=== PATIENT | male | born 2000 | race African-American/Black ===

== ENCOUNTER 2024-05-04 17:14 | Emergency (ER) | payer SELFPAY ==
[~2024-05-04] VITALS: Ht 185.4 cm; Wt 70.0 kg
[2024-05-04 17:15] VITALS: O2SAT 100
[2024-05-04 18:41] LABS: BASOPHILS % 0.4 % (0.0-2.0); HEMATOCRIT. 44.9 % (42.0-52.0); HEMOGLOBIN. 14.7 g/dL (14.0-18.0); LYMPHOCYTES % 11.2 % (20.0-50.0); MEAN CORPUSCULAR HEMOGLOBIN 30.5 pg (28.0-32.0); MEAN CORPUSCULAR HGB CONC 32.6 g/dL (31.0-37.0); MEAN CORPUSCULAR VOLUME 93.4 fL (80.0-94.0); MEAN PLATELET VOLUME 8.4 fl (7.4-10.4); MONOCYTES % 4.5 % (2.0-8.0); NEUTROPHILS % 83.9 % (40.0-76.0); PLATELET 191 x1000/uL (130-400); RED BLOOD CELL COUNT 4.81 mill/uL (4.7-6.1); RED CELL DISTRIBUTION WIDTH 14.3 % (11.6-14.6)
[2024-05-04] MEDS: SODIUM CHLORIDE 0.9% 1,000 ML IV ONE (18:47)
[2024-05-04] MEDS: KETOROLAC 30MG/ML VIAL IV STA (18:47)
[2024-05-04] MEDS: ONDANSETRON HCL 4MG/2ML INJ IV STA (18:47)
[2024-05-04 18:58] LABS: INR 1.1; PROTHROMBIN TIME 11.6 sec (9.6-11.0)
[2024-05-04 19:01] LABS: CHLORIDE 106 mEq/L (98-107); POTASSIUM 3.6 mEq/L (3.5-5.1); SODIUM 141 mEq/L (136-145)
[2024-05-04 19:02] LABS: CARBON DIOXIDE 24 mEq/L (21-32)
[2024-05-04 19:03] LABS: CALCIUM 9.6 mg/dL (8.7-10.4)
[2024-05-04 19:08] LABS: GLUCOSE 124 mg/dL (70-105); UREA NITROGEN BLOOD 13 mg/dL (9-23)
[2024-05-04 19:09] LABS: ALANINE AMINOTRANSFERASE 17 IU/L (10-49); ALBUMIN 4.5 g/dL (3.2-4.8); ASPARTATE AMINOTRANSFERASE 34 IU/L (<34)
[2024-05-04 19:10] LABS: BILIRUBIN DIRECT 0.3 mg/dL (<=3.0); BILIRUBIN TOTAL 0.9 mg/dL (0.1-1.0); PROTEIN TOTAL 7.6 g/dL (6.0-8.3)
[2024-05-04 22:58] LABS: CLARITY URINE CLOUDY (CLEAR); COLOR URINE DARK YELLOW (YELLOW); GLUCOSE URINE NEGATIVE (NEGATIVE); KETONES URINE 4+ (NEGATIVE); LEUKOCYTE ESTERASE URINE NEGATIVE (NEGATIVE); NITRITE URINE NEGATIVE (NEGATIVE); OCCULT BLOOD URINE TRACE (NEGATIVE); PROTEIN URINE 1+ (NEGATIVE); SPECIFIC GRAVITY URINE 1.034 (1.005-1.030)
[2024-05-04] MEDS ORDERED: NAPR-681 MT (23:14)
[2024-05-04] MEDS ORDERED: ONDA-239 PO (23:14)
[2024-05-04 23:17] LABS: BACTERIA URINE 2+; RBC URINE 0-2 /hpf (0-2); SQUAMOUS EPITHELIAL CELL URINE FEW /lpf (RARE/1+); WBC URINE 0-2 /hpf (0-2)
[2024-05-04 23:18] LABS: MUCUS URINE 1+ /lpf (NONE/TRACE)
[2024-05-04 23:30] VITALS: BP 125/71; PULSE 68; RESP 20; TEMP 37; O2SAT 100
== END 2024-05-04 23:33 | disposition home or self-care (01) ==
LOC: ER 17:14
DX: N13.2 Hydronephrosis with renal and ureteral calculous obstruction (principal); K59.00 Constipation, unspecified
CPT/HCPCS: 99285; 74176; 96374; 76705; 96361; 96375; 80076; 80048; 81003; 83690; 85025; 85610; 36415; J1885; J2405; J7030